=== PATIENT | female | born 1960 | race African-American/Black ===

== ENCOUNTER 2016-08-02 09:24 | Observation (INO) | payer OTHER ==
--- NOTE | ~2016-08-02 | HP ---
History And Physical [address] [id number] [place]. [address] NAME: REZA LESLIE : 58 STATUS : DIS Wilfrid PAT#: [id number] AGE: 56 ADM/REG DATE : 08/02/16 MR#: [id number] REPORT SERV DATE: 08/08/16 DICTATED BY: GUADALUPE HAYNES DATE: 08/02/16 REPORT STATUS : Draft TRANSCRIBED BY: MODL DATE: 08/02/16 DATE OF ADMISSION: 08/02/2016 Ms. Leslie is a 56-year-old -[place] female, who is here for bronchoscopy. I examined the patient at bedside after the patient has had the procedure. I was called by Dr. Miller to admit the patient for observation as the patient developed postprocedural acute hypoxic respiratory failure and had briefly required a BiPAP for respiratory support. By the time I examined the patient in the postprocedural area, the patient was already weaned off BiPAP, and she is on oxygen by nasal cannula now at 4 L per minute with oxygen saturations more than 95%. The patient is awake, alert, oriented, and is able to give her history herself right now. Currently, the patient denies any symptoms whatsoever. She denies any chest pain, shortness of breath, cough, fever, nausea, vomiting, abdominal pain, diarrhea, dysuria, or pain anywhere else in the body. She tells me that she was told by her PCP that she had a mass in the right middle lobe of the lung. Further testing revealed that she had to have a bronchoscopy done, and she was referred to Dr. Miller for the same. The patient states that she has never had any problems whatsoever for the last several weeks. She denies any chest pain. She denies any dyspnea on exertion. She denies any fevers. The main reason she came was just for the procedure. The patient states that she has not had any other acute symptoms whatsoever. Review of systems is only negative for chronic problems from chronic medical issues that she has had. The patient has a known history of hypertension, diabetes mellitus, old CVA, which left her with very minimal left-sided weakness for which she uses a cane to get around. The patient also has a history of coronary artery disease, but there is no history of stenting or no history of congestive heart failure. She does have a history of hypercholesterolemia, history of obstructive sleep apnea, for which she uses a CPAP. The patient tells me that she has xgv-cyrvawe-gyqmgtghc diabetes mellitus and takes metformin for diabetes. This diagnosis for right middle lobe lung nodule in this patient is new. PAST MEDICAL HISTORY: As above and this includes hypertension, vyg-neihwpy-igmbhzdlu diabetes mellitus, hypercholesterolemia, coronary artery disease, old CVA with very minimal left-sided weakness, obstructive sleep apnea for which the patient uses CPAP at nighttime, and now a right middle lobe nodule in the lung. REVIEW OF SYSTEMS: As above. FAMILY HISTORY: Positive for hypertension in almost all members of the family. SOCIAL HISTORY: The patient is a smoker, and she smokes about a pack a week. She states that she drinks wine, cooler occasionally. She does smoke marijuana every now and then. She is and has children and grandchildren. ALLERGIES: THE PATIENT IS ALLERGIC TO PENICILLIN. HOME MEDICATIONS: Include Coumadin 6 mg at bedtime that she takes and according to the History And Physical [address] [address] NAME: REZA LESLIE : 58 STATUS : DIS Wilfrid PAT#: [id number] AGE: 56 ADM/REG DATE : 08/02/16 MR#: [id number] REPORT SERV DATE: 08/08/16 DICTATED BY: GUADALUPE HAYNES DATE: 08/02/16 REPORT STATUS : Draft TRANSCRIBED BY: WAYLON DATE: 08/02/16 patient, she takes this because she has had a stroke in the past. I questioned her over and over again if she takes the Coumadin for an irregular heart rhythm, and she denies it. I questioned her again if she has had a blood clot in either of the legs or in the lungs, and she denies it. She only states that she was put on this for questionable stroke. Anyway, she has been on it, and she is being managed by her PCP regarding this Coumadin. The patient also takes Norvasc 10 mg p.o. b.i.d., Coreg 25 mg p.o. b.i.d., lisinopril 40 mg once a day, Crestor 20 mg once a day, Zoloft 100 mg once a day, trazodone 100 mg once at bedtime, Lasix 20 mg once every day, Nexium 20 mg once a day, metformin 500 mg p.o. b.i.d., and Ventolin HFA two puffs p.r.n. PHYSICAL EXAMINATION: GENERAL: On examination, the patient is alert, oriented, and is able to answer all my questions appropriately. VITAL SIGNS: Stable. Right now, her O2 saturations are above 95% on oxygen per nasal cannula. Skin and mucous membranes appear moist. There is no facial asymmetry or facial droop. NECK: There is no JVD, thyromegaly, or lymphadenopathy. CARDIOVASCULAR SYSTEM: S1, S2 appreciated. Sinus rhythm. No murmurs, rubs, or gallops noted. RESPIRATORY SYSTEM: Clear lungs. No rales or rhonchi noted. ABDOMEN: Obese, soft, nontender, nondistended. Bowel sounds are appreciated. I could not appreciate any organomegaly or hepatosplenomegaly. EXTREMITIES: There is no pedal edema. Pedal pulses are well felt in both feet. NEUROLOGICAL: There is hardly any weakness, but very very minimal weakness on the left side, both left hand and left leg compared to the right side. 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 Hence, at this time I would pretty much state that there is very minimal or no acute neurological deficits. MUSCULOSKELETAL: No acute swelling or redness in any of the major joints. PSYCHIATRIC: Chronic depression, but now the patient has normal affect and appears with normal mood and answers questions appropriately. LABORATORY DATA: Labs that I have on this patient are as follows. CBC shows WBC of 3.9 and the rest of the labs are normal. INR is 1.7. The patient has stopped Coumadin on Sunday. Electrolyte profile is completely normal. Glucose is 110. The patient has had a bronchoscopy for actually the left upper lobe lung nodule according to Dr. Miller's dictation. Chest x-ray, portable, shows that the patient has areas of atelectasis, but primarily in the right greater than left. Her arterial blood gas shows that pH is 7.3, pCO2 of 58, pO2 of 51, O2 sats 81.2 and this is on 15.2 L of oxygen. Her electrolyte profile as I said appears normal. ASSESSMENT AND PLAN: 1. Admit the patient for observation for acute postprocedural hypoxic respiratory failure, consult Dr. Miller for management. History And Physical [address] [address] NAME: REZA LESLIE : 58 STATUS : DIS Wilfrid PAT#: [id number] AGE: 56 ADM/REG DATE : 08/02/16 MR#: [id number] REPORT SERV DATE: 08/08/16 DICTATED BY: GUADALUPE HAYNES DATE: 08/02/16 REPORT STATUS : Draft TRANSCRIBED BY: MODL DATE: 08/02/16 2. Obstructive sleep apnea, resume patient on home CPAP with home CPAP settings. 3. Check troponin I and EKG as the patient has history of coronary artery disease. 4. As the patient has diabetes, start her on 1800 kilocalorie ADA diet. Keep her on SSI level 1 and check her hemoglobin A1c. 5. We will resume the rest of her home medications as of now. Continue all the rest of her home medications. We will also check a procalcitonin and if normal, stop Levaquin if okay with Dr. Miller. 6. Hypoxia, resolved. Discharge patient to home in the morning with followup biopsy results of the biopsied lung nodule via bronchoscopy. RRA/MODL Guadalupe Haynes M.D. / [id number] CC: Ricky Erickson MD
--- NOTE | ~2016-08-02 | DS ---
Discharge Summary [facility] [address] [place]. [address] NAME: REZA LESLIE : 58 STATUS : DIS Wilfrid PAT#: [id number] AGE: 56 ADM/REG DATE : 08/02/16 MR#: [id number] REPORT SERV DATE: 08/03/16 DICTATED BY: KATE WILLETT DATE: 08/03/16 REPORT STATUS : Draft TRANSCRIBED BY: MODL DATE: 08/03/16 ADMISSION DATE: 08/02/2016 DISCHARGE DATE: 08/03/2016 HOSPITAL COURSE: The patient is a 56-year-old female with multiple medical histories including hypertension, diabetes, obstructive sleep apnea on CPAP, ASCVD, who presented to the hospital for a bronchoscopy and developed post-procedural hypoxic respiratory failure. For further details please refer to H and P, which is listed erroneously as a discharge summary, dictated by Dr. Leon 07/24/2016. I assumed care of the patient. At the time of my assumption of care, the patient remained hemodynamically stable, was evaluated by Pulmonology and cleared from a Pulmonary standpoint for discharge. Given her hemodynamic stability and resolution of her presenting symptoms the patient will be discharged to follow up with her primary care physician. MEDICATIONS: Home medications were continued with the addition of: 1. Levaquin 750 mg p.o. daily for three days. 2. Prednisone 40 mg p.o. daily for three days. 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 ACTIVITY: As tolerated. DIET: Diabetic diet. Greater than 30 minutes were spent coordinating discharge, reviewing the chart, coordinating discharge. HUSSAIN/WAYLON Kate Willett MD / [id number] CC: MD Radha Aleman M.D.
--- NOTE | ~2016-08-02 | CN ---
Consultation Report [facility] [address] [place]. [address] NAME: REZA LESLIE : 58 STATUS : ADM Wilfrid PAT#: [id number] AGE: 56 ADM/REG DATE : 08/02/16 MR#: [id number] REPORT SERV DATE: 08/02/16 DICTATED BY: MIN ALAMO DATE: 08/02/16 REPORT STATUS : Draft TRANSCRIBED BY: MODL DATE: 08/02/16 CONSULTATION DATE OF CONSULTATION: Dear Dr. Ortez and Monica So: Thank you for requesting my opinion regarding evaluation and management of Ms. Reza Leslie' right middle lobe lung lesion. Ms. Leslie is an extremely pleasant 56-year-old female with a significant past medical history of tobacco abuse, asthma/clinical COPD, obstructive sleep apnea, compliant with CPAP, and stroke, who presents to [facility] for formal evaluation of a 1.2 cm right middle lobe lung nodule detected on a CT scan on 07/18/2016. The patient states that she smoked, since her use, for greater than 30 years, but only smoked up to a half pack per week. She developed bronchitis-like symptoms and underwent a chest x-ray that demonstrated a right mid lung zone abnormality, and subsequent CT scan of the chest on 07/18/2016 demonstrated a 1.2 cm indeterminate right mid lung zone lung nodule, concerning for potential malignancy or a benign process. The patient also had bilateral mid lung linear subsegmental atelectasis and a subcentimeter left liver solid or cystic lesion and a 1.3 cm indeterminate hypodense right renal lesion. The patient also had other findings including a small hiatal hernia, atherosclerosis of the thoracic aorta, and coronary arterial calcifications. The patient states that her bronchitis-like symptoms have significantly improved. She denies any weight gain, weight loss, nausea, vomiting, diarrhea, or constipation. She states that she has exertional shortness of breath, but easily recovers with rest. PAST MEDICAL HISTORY: 1. Myocardial infarction. 2. Asthma. 3. Sleep apnea, on CPAP. 4. Gastroesophageal reflux disease. 5. IBS. 6. Fatty liver disease. 7. Renal stones. 8. Type 2 diabetes. 9. Stroke. PAST SURGICAL HISTORY: 1. Cervix removal per Dr. Reyes in 2000. 2. Bilateral tubal ligation. 3. Benign tumor removal of the left upper leg. 4. Benign tumor removal of the left breast in 2010. FAMILY HISTORY: Consultation Report [address] [place] [facility]. [address] NAME: REZA LESLIE : 58 STATUS : ADM Wilfrid PAT#: [id number] AGE: 56 ADM/REG DATE : 08/02/16 MR#: [id number] REPORT SERV DATE: 08/02/16 DICTATED BY: MIN ALAMO DATE: 08/02/16 REPORT STATUS : Draft TRANSCRIBED BY: WAYLON DATE: 08/02/16 1. Hypertension. 2. Melanoma. 3. Asthma. 4. TIA. 5. Type 2 diabetes. 6. Fibromyalgia. SOCIAL HISTORY: The patient is currently . She has three children. Her boyfriend is with her, and she consented to disclosing the biopsy results to her boyfriend. She continues to smoke about a half pack of cigarettes per week, although on documentation provided by the nurse practitioner, she smoked one to five cigarettes per day. She has no history of alcohol or illicit drug abuse. The patient reportedly had also had some exposure to marijuana. ALLERGIES: PENICILLIN. HOME MEDICATIONS: Include: 1. Amlodipine 10 mg p.o. daily. 2. Carvedilol 25 mg p.o. b.i.d. 3. Lasix 20 mg p.o. daily. 4. Lisinopril 40 mg p.o. daily for blood pressure. 5. Metformin 500 mg p.o. b.i.d. for diabetes. 6. Warfarin 6 mg as directed. 7. Zoloft 100 mg p.o. daily for depression. 8. Crestor 10 mg p.o. q.h.s. 9. Nexium 24HR 20 mg tablet. 10.Trazodone 100 mg p.o. daily. PHYSICAL EXAMINATION: VITAL SIGNS: Reviewed and located in the paper chart. GENERAL: No acute distress. Able to communicate in full paragraphs at a time. The patient has longstanding weakness on the left that is chronic in nature. HEENT: Normocephalic and atraumatic. Pupils are equal, round, reactive to light and accommodation. Posterior oropharynx is clear. NECK: No JVD. No LAD. Trachea midline. CARDIOVASCULAR: Regular rate and rhythm. S1 and S2 present. LUNGS: Diminished breath sounds bilaterally. ABDOMEN: Nontender, nondistended, soft. Positive bowel sounds. EXTREMITIES: No clubbing, cyanosis, or edema. SKIN: No new rashes, lesions, or ulcers. PSYCHIATRIC: Alert and oriented x3. Appropriate mood and affect. Appropriate insight and judgment. NEUROLOGIC: Slight weakness on the left. Otherwise, 5/5 strength in the upper and lower extremities. Cranial nerves II through XII intact. Gait not tested. DTRs not performed. Consultation Report [place] [id number] [place] [address] NAME: REZA LESLIE : 58 STATUS : ADM Wilfrid PAT#: [id number] AGE: 56 ADM/REG DATE : 08/02/16 MR#: [id number] REPORT SERV DATE: 08/02/16 DICTATED BY: MIN ALAMO DATE: 08/02/16 REPORT STATUS : Draft TRANSCRIBED BY: WAYLON DATE: 08/02/16 IMAGING: CT scan of the chest performed at [facility] was personally reviewed by me and I agree with the following interpretation. 1. A 1.2 cm indeterminate right mid lung zone lobulated, circumscribed lung noncalcified lesion. 2. Bilateral mid lung zone linear subsegmental atelectasis. 3. A subcentimeter hypodense left liver lesion, which may be solid or cystic, and a 1.3 cm indeterminate hypodense right renal lesion. 4. A small hiatal hernia. 5. Atherosclerosis of the thoracic aorta and coronary calcifications. ASSESSMENT AND PLAN: Ms. Reza Leslie is a pleasant 56-year-old female with a significant past medical history of tobacco abuse, stroke and asthma/clinical chronic obstructive pulmonary disease and obstructive sleep apnea, compliant with CPAP, who presents to [facility] for an outpatient elective Interventional Pulmonology evaluation of a right middle lobe 1.2 cm indeterminate lung lesion. According to the [facility] solitary pulmonary nodule calculator, the pretest probability of malignancy is approximately 28%. The clinical and radiographic presentation is most concerning for either an indolent tumor such as carcinoid, an atypical infection, or granuloma. At this point, Ms. Leslie would like to proceed with biopsy. We discussed in detail potential options including CT-guided needle biopsy, thoracic surgical biopsy, or EBUS and navigation bronchoscopy. After careful discussion of the risks, benefits and alternatives to each of these procedures, we agreed to proceed forward with EBUS and navigation bronchoscopy. A summary of my recommendations are as follows: 1. Proceed with EBUS and navigation bronchoscopy. 2. Further recommendations pending final biopsy results. 3. The patient will follow up in our pulmonary clinic as an outpatient. 4. If found to have malignancy, we will arrange for appropriate staging studies and formal consultation with Thoracic Surgery. Thank you for allowing me to participate in Ms. Leslie' care. BRAVO/WAYLON Min Alamo M.D. / [id number] CC: Ricky Erickson MD Consultation Report [address] [address] NAME: REZA LESLIE : 58 STATUS : ADM Wilfrid PAT#: [id number] AGE: 56 ADM/REG DATE : 08/02/16 MR#: [id number] REPORT SERV DATE: 08/02/16 DICTATED BY: MIN ALAMO DATE: 08/02/16 REPORT STATUS : Draft TRANSCRIBED BY: WAYLON DATE: 08/02/16 Radha Ortez M.D.
--- NOTE | ~2016-08-02 | EGD ---
EGD REPORT [facility] [address] [address] NAME: REZA LESLIE : 58 STATUS : REG [facility]#: [id number] AGE: 56 ADM/REG DATE : 08/02/16 MR#: [id number] REPORT SERV DATE: 08/02/16 DICTATED BY: AYE ALAMO DATE: 08/02/16 REPORT STATUS : Draft TRANSCRIBED BY: [employer] DATE: 08/02/16 Pulmonology Patient Name: Reza Leslie Procedure Date: 08/02/2016 11:32 AM Date of : 1960 Attending MD: YONI ALAMO MD Procedure Date No Time: 08/02/2016 Procedure: EBUS/LUIS BRONCH Indications: JOSE lung nodule, irregular, smoker Providers: YONI ALAMO MD Referring MD: AMANDA RESENDEZ MD Medicines: Lidocaine 2% 20 mL Complications: Possible siezure like activity at the close of the case. Patients left arm and leg appeared to become rigid. Propofol was immediately administered with resolution. Post operative course will be discussed with Anesthesia. Procedure: - A History and Physical has been performed. Patient meds and allergies have been reviewed. The risks and benefits of the procedure and the sedation options and risks were discussed with the patient. All questions were answered and informed consent was obtained. Patient identification and proposed procedure were verified prior to the procedure by the physician in the pre-procedure area in the procedure room. Mental Status Examination: alert and oriented. Airway Examination: normal oropharyngeal airway. Respiratory Examination: poor air movement. CV Examination: normal and RRR, no murmurs, no S3 or S4. ASA Grade Assessment: III - A patient with severe systemic disease. After reviewing the risks and benefits, the patient was deemed in satisfactory condition to undergo the procedure. The anesthesia plan was to use general anesthesia. Immediately prior to administration of medications, the patient was re-assessed for adequacy to receive sedatives. The heart rate, respiratory rate, oxygen saturations, blood pressure, adequacy of pulmonary ventilation, and response to care were monitored throughout the procedure. The physical status of the patient was re-assessed after the procedure. The patient tolerated the procedure well. the BF [id number] was introduced through the mouth, via the endotracheal tube (the patient was intubated for the procedure) and advanced to the tracheobronchial tree. the Bronchoscope was introduced through the and advanced to the. EGD REPORT [address] [address] NAME: REZA LESLIE : 58 STATUS : REG [place] PAT#: [id number] AGE: 56 ADM/REG DATE : 08/02/16 MR#: [id number] REPORT SERV DATE: 08/02/16 DICTATED BY: AYE ALAMO DATE: 08/02/16 REPORT STATUS : Draft TRANSCRIBED BY: [employer] DATE: 08/02/16 Findings: The endotracheal tube is in good position. The visualized portion of the trachea is of normal caliber. The eloisa is sharp. The tracheobronchial tree was examined to at least the first subsegmental level. Bronchial mucosa and anatomy are normal; there are no endobronchial lesions, and no secretions. EBUS TBNA of lymph node level 11L x 6 passes for cytology EBUS TBNA of lymph node level 7 x 4 passes for cytology EBUS TBNA of lymph node level 4R x 6 passes for cytology EBUS TBNA of lymph node level 11R x 4 passes for cytology Using SuperDimension Edge catheter 180, peripheral probe EBUS 17s, and fluoroscopy, I performed the following biopsies: RML lung nodule transbronchial needle aspirates x 9 passes for cytology RML lung nodule transbronchial brush biopsy x 2 pass for cytology RML lung nodule transbronchial forcep biopsies x 10 passes for histopathology ARCHANA endobronchial brush biopsies were performed for the Percepta Trial Bronchoalveolar lavage was performed in the right middle lobe of the lung and sent for cell count, cytology, bacterial culture, viral smears \\T\\ culture, and fungal and AFB analysis. 180 mL of fluid were instilled. 50 mL were returned. The return was blood-tinged and cellular. Impression: Rapid On-Site Evaluation (QASIM): Preliminary cytology is "SPINDLE CELLS, UNCLEAR IF A MALIGNANT PROCESS VERSUS AN INFLAMMATORY PROCESS IS PRESENT" (final results are pending). Recommendation: - Await test results. - Chest X-ray. - Follow up in clinic. Attending Participation: I personally performed the entire procedure. YONI ALAMO MD 08/02/2016 2:14 PM This report has been signed electronically. Number of Addenda: 0 Note Initiated On: 08/02/2016 11:32 AM [address] [address]
--- NOTE | ~2016-08-02 | HP ---
History And Physical [place] [id number] [facility] [address] [address] NAME: REZA LESLIE : 58 STATUS : ADM Wilfrid PAT#: [id number] AGE: 56 ADM/REG DATE : 08/02/16 MR#: [id number] REPORT SERV DATE: 08/03/16 DICTATED BY: GUADALUPE HAYNES DATE: 08/03/16 REPORT STATUS : Draft TRANSCRIBED BY: MODL DATE: 08/03/16 DATE OF ADMISSION: 08/02/2016 ADDENDUM: Please note that my history and physical exam that was dictated on 08/02/2016 was transcribed as discharge summary. Please change the discharge summary that was dictated on 08/02/2016 to a full history and physical exam because what was really done was a full history and physical exam and it should have been transcribed as H and P instead of discharge summary. RRA/WAYLON Guadalupe Haynes M.D. / [id number] CC: MD Radha Aleman M.D.
[~2016-08-02 09:24] MED LIST: COREG25 PO; COUMADIN6 MG PO; CRESTOR20 MG PO; GLUCPH PO; L20 PO; LISINOPRIL40 MG PO; NEXIUM20 M1 PO; NORV10 PO; TRAZ100 PO; VENTOLIN HFA INH; ZOL100 PO
[2016-08-02 09:59] LABS: BASOPHILS 0.3 %; BASOPHILS ABSOLUTE 0.01 10/3/uL (0.0-0.16); EOSINOPHILS 3.4 %; EOSINOPHILS ABSOLUTE 0.13 10/3/uL (0.0-0.53); HEMOGLOBIN 13.5 g/dL (12.0-16.0); LYMPHOCYTES 35.6 %; LYMPHOCYTES ABSOLUTE 1.37 10/3/uL (0.67-4.30); MEAN CORPUS HGB CONC 32.1 g/dL (32.0-36.0); MEAN CORPUSCULAR HEMOGLOB 29.4 pg (26.0-34.0); MEAN CORPUSCULAR VOLUME 91.5 fL (80-100); MEAN PLATELET VOLUME 10.1 fL (9.2-13.0); MONOCYTES 7.8 %; NEUTROPHILS 52.9 %; NEUTROPHILS ABSOLUTE 2.04 10/3/uL (2.02-8.40); PLATELET COUNT 238 10/3/uL (150-400); RBC DISTRIBUTION WIDTH 14.8 % (12.0-16.0); RED CELL COUNT 4.59 10/6/uL (4.0-5.6); WHITE BLOOD CELLS 3.9 10/3/uL (4.5-10.5)
[2016-08-02 10:00] LABS: MANUAL DIFF NO %
[2016-08-02 10:06] LABS: INTERNATIONAL NORMAL RATI 1.1 UNITS (-); PARTIAL THROMBO TIME 27.8 SEC (22.5-37.2); PROTIME (NOT ORD) 13.7 SEC (12.0-14.5)
[2016-08-02 10:10] LABS: BUN (BLOOD UREA NITROGEN) 14 MG/DL (6-23); CALCIUM, SERUM 9.5 MG/DL (8.5-10.4); CHLORIDE, SERUM 101 MMOL/L (96-112); CO2 (CARBON DIOXIDE) 31 MMOL/L (24-34); CREATININE 0.94 MG/DL (0.55-1.02); GFR AFRICAN AMERICAN 78 ML/MIN (>=60); GFR NON AFRICAN AMERICAN 67 ML/MIN (>=60); GLUCOSE, SERUM 110 MG/DL (60-99); POTASSIUM, SERUM 3.7 MMOL/L (3.5-5.3); SODIUM, SERUM 141 MMOL/L (135-148)
[2016-08-02 14:46] LABS: ALLENS TEST Pos; BE (BASE EXCESS) 4.7 MEQ/L (0 +/- 2.5); CARBOXYHEMOGLOBIN 0.1 % (0-3); DEVICE SM; HCO3 (ACTUAL BICARBONATE) 31.7 MEQ/L (23-27); HEMOBLOGIN CONTENT 13.4 G/DL (12-16); INSTRUMENT SERIAL # 11843; METHEMOGLOBIN 0.1 % (0-3); O2 CONTENT 15.2 VOL% (18-24); OPERATOR ID 19104; PCO2 (CO2 TENSION) 58 MMHG (35-45); PO2 (O2 TENSION) 51 MMHG (79-93); SAMPLE Arterial; pH 7.36 (7.37-7.43)
[2016-08-02 19:49] LABS: BD FL LYMPH (NOT ORD) 37 %; BF BASO (NOT OF) 0 %; BF LARGE MONONUCLEAR 11 %; BODY FLUID EOS (NOT ORD) 0 %; BODY FLUID SEG (NOT ORD) 52 %
[2016-08-02 19:51] LABS: BF TOTAL CELL CT (NOT ORD 164 /MM3; BODY FLUID RBC (NOT ORD) 269000 /MM3
[2016-08-02 19:52] LABS: BD FL SOURCE (NOT ORD) RML BAL
[2016-08-02 20:15] LABS: TROPONIN I <0.02 NG/ML (<0.05)
[2016-08-02 20:44] LABS: B NATRIURETIC PEPTIDE (BNP) 61.6 PG/ML (< 100.0)
[2016-08-02 21:24] LABS: GLYCOHEMOGLOBIN (HbA1c) 6.1 % (4.7-6.1)
[2016-08-02 22:27] LABS: PROCALCITONIN <0.05 ng/mL (<0.5)
[2016-08-03 05:58] LABS: BASOPHILS 0 %; EOSINOPHILS 0 %; HEMOGLOBIN 11.3 g/dL (12.0-16.0); IMMATURE GRANULOCYTES 0.2 %; IMMATURE GRANULOCYTES ABSOLUTE 0.01 10/3/uL (0.0-0.11); LYMPHOCYTES ABSOLUTE 0.82 10/3/uL (0.67-4.30); MEAN CORPUS HGB CONC 32.2 g/dL (32.0-36.0); MEAN CORPUSCULAR HEMOGLOB 28.8 pg (26.0-34.0); MEAN CORPUSCULAR VOLUME 89.3 fL (80-100); MEAN PLATELET VOLUME 10.4 fL (9.2-13.0); MONOCYTES 5.7 %; MONOCYTES ABSOLUTE 0.31 10/3/uL (0.21-1.20); NEUTROPHILS 79.1 %; NEUTROPHILS ABSOLUTE 4.33 10/3/uL (2.02-8.40); PLATELET COUNT 233 10/3/uL (150-400); RBC DISTRIBUTION WIDTH 14.7 % (12.0-16.0); RED CELL COUNT 3.93 10/6/uL (4.0-5.6)
[2016-08-03 06:04] LABS: HEMATOCRIT 35.1 % (36.0-48.0); WHITE BLOOD CELLS 5.5 10/3/uL (4.5-10.5)
[2016-08-03 06:05] LABS: MANUAL DIFF NO %
[2016-08-03 06:06] LABS: INTERNATIONAL NORMAL RATI 1.1 UNITS (-); PROTIME (NOT ORD) 14.5 SEC (12.0-14.5)
[2016-08-03 06:09] LABS: BUN (BLOOD UREA NITROGEN) 18 MG/DL (6-23); CALCIUM, SERUM 8.7 MG/DL (8.5-10.4); CHLORIDE, SERUM 99 MMOL/L (96-112); CO2 (CARBON DIOXIDE) 27 MMOL/L (24-34); CREATININE 0.96 MG/DL (0.55-1.02); GFR AFRICAN AMERICAN 76 ML/MIN (>=60); GFR NON AFRICAN AMERICAN 66 ML/MIN (>=60); GLUCOSE, SERUM 116 MG/DL (60-99); POTASSIUM, SERUM 3.4 MMOL/L (3.5-5.3); SODIUM, SERUM 138 MMOL/L (135-148)
[2016-08-03 07:34] LABS: INSTRUMENT SERIAL # 8083; PCO2 (CO2 TENSION) 42 MMHG (35-45); PO2 (O2 TENSION) 68 MMHG (79-93); pH 7.45 (7.37-7.43)
[2016-08-03 07:35] LABS: ALLENS TEST Pos; BE (BASE EXCESS) 4.1 MEQ/L (0 +/- 2.5); CARBOXYHEMOGLOBIN 0.5 % (0-3); DEVICE home cpap + 3L BLEED; HCO3 (ACTUAL BICARBONATE) 28.5 MEQ/L (23-27); HEMOBLOGIN CONTENT 12.3 G/DL (12-16); METHEMOGLOBIN 0.2 % (0-3); O2 CONTENT 16.1 VOL% (18-24); OPERATOR ID 13415; SAMPLE Arterial
[2016-08-03] MEDS ORDERED: LEVAQUIN750 MG PO (17:23)
[2016-08-03] MEDS ORDERED: P20 PO (17:27)
[2016-08-03] MEDS ORDERED: BREO ELLIPTA 21 EACH INH (17:31)
== END 2016-08-03 18:06 | disposition home or self-care (01) ==
LOC: DMU 09:24 → SDC/OF 16:10 → 2SO 18:48
PROVIDERS: Hospitalist; Internal Medicine
PROC: 07B74ZX Excision of Thorax Lymphatic, Percutaneous Endoscopic Approach, Diagnostic (ICD-10-PCS; principal; 2016-08-02 11:00)
PROC: 0BB58ZX Excision of Right Middle Lobe Bronchus, Via Natural or Artificial Opening Endoscopic, Diagnostic (ICD-10-PCS; 2016-08-02 11:00)
PROC: 0B958ZX Drainage of Right Middle Lobe Bronchus, Via Natural or Artificial Opening Endoscopic, Diagnostic (ICD-10-PCS; 2016-08-02 11:00)
DX: R91.1 Solitary pulmonary nodule (principal); F17.200 Nicotine dependence, unspecified, uncomplicated; I69.354 Hemiplegia and hemiparesis following cerebral infarction affecting left non-dominant side; I10 Essential (primary) hypertension; E11.9 Type 2 diabetes mellitus without complications; K21.9 Gastro-esophageal reflux disease without esophagitis; J40 Bronchitis, not specified as acute or chronic; I25.10 Atherosclerotic heart disease of native coronary artery without angina pectoris
CPT/HCPCS: 36600; 70553; 71010; 80048; 82805; 82962; 83036; 83880; 84145; 84484; 85025; 85610; 85730; 87015; 87070; 87101; 87102; 87116; 87205; 88112; 88172; 88173; 88305; 88333; 89051; 93005; 94640; 94660; 96372; 96374; A9270-GY; C1725; G0378; J1956; J2250; J2405; J2710; J2930; J3010